=== PATIENT | male | born 1990 | race African-American/Black ===

== ENCOUNTER 2024-03-27 21:13 | Emergency (ER) | payer OTHER, SELFPAY ==
--- NOTE | 2024-03-27 21:13 | ECG_ITS ---
Test Reason : CHEST PAIN Blood Pressure : / mmHG Vent. Rate : 088 BPM Atrial Rate : 088 BPM P-R Int : 164 ms QRS Dur : 096 ms QT Int : 376 ms P-R-T Axes : 026 008 013 degrees QTc Int : 454 ms Normal sinus rhythm Normal ECG No previous ECGs available Referred By: Generic ED Physician Electronically Signed By:BERTHA VILLANUEVA MD
[2024-03-27 21:20] VITALS: BP 172/116; PULSE 90; RESP 16; TEMP 37; O2SAT 97; BMI 51.7
[2024-03-27 21:45] LABS: MANUAL DIFF FLAG NO
--- NOTE | 2024-03-27 21:45 | ED_ITS ---
HPI - Chest Pain General Chief Complaint: Chest Pain Stated Complaint: chest pain Time Seen by Provider: 03/27/24 21:37 Source: patient Mode of arrival: ambulatory Limitations: no limitations History of Present Illness HPI narrative: Patient no significant past medical history heavy built with strong family history of hypertension been having several months of left-sided discomfort blood pressure checked at home and several times was elevated today in triage blood pressure was 172/116 with pulse rate of 90 no diaphoresis no shortness a breath pain in the chest is nonspecific constant pain no radiation of pain fell some tingling in the left hand also no fever no chills no cough Related Data Previous Rx's ?Medication ?Instructions ?Recorded amlodipine 10 mg tablet 10 mg PO DAILY #90 tabs 03/27/24 Allergies Allergy/AdvReac Type Severity Reaction Status Date / Time amoxicillin Allergy Unknown Verified 03/27/24 21:21 Penicillins [PCN] Allergy Unknown Verified 03/27/24 21:21 Review of Systems 2 Review of Systems: Yes all other systems are reviewed and are negative [facility] Social History Social History Smoked in Last 30 Days: No Use of substances other than those prescribed or required for medical reasons: Yes Substance Use Type: Marijuana Substance Use Frequency: Occasionally Advance Directives: No Advance Directives Information Provided: No Do you have a plan to hurt others: No Plan Physical Exam 2 Vital Signs: Vital Signs: Last Vital Signs Temp 97.8 F 03/27/24 23:13 Pulse 76 03/27/24 23:13 Resp 16 03/27/24 23:13 BP 143/84 H 03/27/24 23:13 Pulse Ox 99 03/27/24 23:13 O2 Del Method Room Air 03/27/24 23:13 BMI result Body Mass Index 51.7 Appearance: Alert. Oriented X3. No acute distress. Eyes: No pallor or icterus ENT: Pharynx normal. Oral Mucosa moist Neck: Normal inspection. Neck supple. CVS: Normal heart rate and rhythm. Pulses normal. Respiratory: No respiratory distress. Equal air entry bilateral, no wheezing/rales/rhonchi Abdomen: Soft and nontender. Bowel sounds are present, no mass palpable, no CVA tenderness Skin: Skin warm and dry. Normal skin color. Normal skin turgor. Extremities: No lower extremity edema. No calf tenderness Neuro: Oriented X 3. No motor deficit. No sensory deficit.No cerebellar signs , cranial nerves II-XII intact Medications Administered Discontinued Medications Generic Name Dose Route Start Last Admin Trade Name Jessie PRN Reason Stop Dose Admin Amlodipine Besylate 10 mg 03/27/24 21:55 03/27/24 22:27 Amlodipine Besylate 10 Mg Tablet PO 03/27/24 21:56 10 mg ONCE ONE Administration Protocol Medical Decision Making Medical Decision Making [facility] Narrative: Patient with hypertension for several months with high-risk to have hypertension with strong family history will start patient on amlodipine advised to decrease salt intake patient's blood workup is negative for ACS Differential Diagnosis Differential Diagnoses: The differential diagnosis associated with the presentation includes Lab Data [facility] Lab Attestation statement: I reviewed the patient's lab results. 03/27/24 21:37 03/27/24 21:37 Labs: Lab Results 03/27/24 Range/Units 21:37 WBC 8.3 (4.8-10.8) X10*3/uL RBC 4.83 (4.60-5.80) X10*6/uL Hgb 14.9 (14.0-18.0) g/dl Hct 43.6 (42.0-52.0) % MCV 90.3 (80.0-98.0) fL MCH 30.8 (27.0-33.0) pg MCHC 34.2 (31.0-36.0) g/dl RDW 12.2 (11.0-16.0) % Plt Count 320 (160-400) X10*3/uL MPV 10.0 (9.4-12.4) fL Immature Gran % (Auto) 0.2 (0.0-0.4) % Neut % (Auto) 42.0 L (45-73) % Lymph % (Auto) 47.3 H (20-40) % [place] % (Auto) 9.4 (2-11) % Eos % (Auto) 0.6 (0-4) % Baso % (Auto) 0.5 (0-2) % Lymph # (Auto) 3.9 (1.2-4.9) X10*3/uL [place] # (Auto) 0.8 (0.1-1.2) X10*3/uL Eos # (Auto) 0.1 (0.0-0.4) X10*3/uL Baso # (Auto) 0.0 (0.0-0.2) X10*3/uL Abs Immat Gran (auto) 0.02 (0.00-0.03) X10*3/uL Absolute Neuts (auto) 3.5 (2.0-8.3) x10*3/uL Absolute Nucleated RBC 0.000 (0.0-0.012) X10*3/uL Nucleated RBC % (auto) 0.0 (0.0-0.2) /100WBC Sodium 143 (135-145) mmol/L Potassium 3.3 (3.3-5.1) mmol/L Chloride 103 (96-108) mmol/L Carbon Dioxide 29 (22-29) mmol/L Anion Gap 14 (12-20) BUN 9 (9-16) mg/dL Creatinine 0.85 (0.5-1.4) mg/dL Estim Creat Clear Calc 210.0 Estimated GFR > 60 Random Glucose 96 (60-115) mg/dL Calcium 10.2 (8.4-10.2) mg/dL Total Bilirubin 0.8 (0.0-1.0) mg/dL Direct Bilirubin 0.3 (0.0-0.5) mg/dL AST 23 (5-37) U/L ALT 25 (0-40) U/L Alkaline Phosphatase 93 (39-117) U/L Troponin I High Sens < 2.7 (<3.5-35.0) ng/L Total Protein 9.0 H (6.5-8.0) g/dL Albumin 4.8 (3.5-5.0) g/dL Lipase 13 (8-78) U/L Independent Interpretation I performed an independent interpretation of an: EKG Interpretation: Normal sinus rhythm heart rate 88 beats per minute no acute ST-T changes no acute ischemia Discharge Plan Discharge Clinical Impression: Essential hypertension Patient Disposition: Home, Self-Care Instructions: Hypertension (ED) Additional Instructions: Decrease salt intake Start taking blood pressure medication daily Check blood pressure daily should be less than 130/80 Follow with your PCP Prescriptions: New amlodipine 10 mg tablet 10 mg PO DAILY Qty: 90 1RF Interventions: ED Discharge Assessment Last Done: 03/27/24 23:13 Discharge Date/Time: 03/27/24 23:14 Print Language: Welsh
[2024-03-27 21:47] LABS: Basophils Percent Auto 0.5 % (0-2); Eosinophils Absolute Auto 0.1 X10*3/uL (0.0-0.4); Eosinophils Percent Auto 0.6 % (0-4); Hematocrit 43.6 % (42.0-52.0); Hemoglobin 14.9 g/dl (14.0-18.0); Imm Gran Abs Auto 0.02 X10*3/uL (0.00-0.03); Imm Gran Pct Auto 0.2 % (0.0-0.4); Lymphocytes Absolute Auto 3.9 X10*3/uL (1.2-4.9); Lymphocytes Percent Auto 47.3 % (20-40); Mean Corpuscular HGB Conc 34.2 g/dl (31.0-36.0); Mean Corpuscular Hemoglobin 30.8 pg (27.0-33.0); Mean Corpuscular Volume 90.3 fL (80.0-98.0); Monocytes Absolute Auto 0.8 X10*3/uL (0.1-1.2); Monocytes Percent Auto 9.4 % (2-11); Neutrophils Absolute Auto 3.5 x10*3/uL (2.0-8.3); Platelet Count 320 X10*3/uL (160-400); Red Blood Count 4.83 X10*6/uL (4.60-5.80); Red Cell Distribution Width 12.2 % (11.0-16.0); White Blood Count 8.3 X10*3/uL (4.8-10.8)
[2024-03-27 22:01] LABS: Alanine Aminotransferase 25 U/L (0-40); Albumin Level 4.8 g/dL (3.5-5.0); Alkaline Phosphatase 93 U/L (39-117); Anion Gap 14 (12-20); Aspartate Amino Transferase 23 U/L (5-37); Bilirubin Direct 0.3 mg/dL (0.0-0.5); Bilirubin Total 0.8 mg/dL (0.0-1.0); Blood Urea Nitrogen 9 mg/dL (9-16); Calcium 10.2 mg/dL (8.4-10.2); Carbon Dioxide 29 mmol/L (22-29); Chloride 103 mmol/L (96-108); Estimated Glomerular Filt Rate > 60; Glucose Random 96 mg/dL (60-115); Lipase 13 U/L (8-78); Potassium 3.3 mmol/L (3.3-5.1); Sodium 143 mmol/L (135-145)
[2024-03-27 22:13] LABS: Troponin-I High Sensitivity < 2.7 ng/L (<3.5-35.0)
[2024-03-27 22:27] VITALS: BP 151/91
[2024-03-27] MEDS: amLODIPine Besylate 10 MG TABLET PO (22:27)
--- NOTE | 2024-03-27 22:30 | PC.NURSE ---
pt from home, a&ox4, respirations even and unlabored, reporting onset of left sided chest pain x3 months, reports today left handed numbness, pt denies SOB and any sick contacts. pt medicated per mar for high blood pressure, tolerated well with water. pt normal sinus on tele 80-83bpm.
[2024-03-27 23:08] VITALS: BP 143/84; PULSE 76; RESP 16; TEMP 36.6; O2SAT 99
[2024-03-27 23:13] VITALS: BP 143/84; PULSE 76; RESP 16; TEMP 36.6; O2SAT 99
== END 2024-03-27 23:14 | disposition home or self-care (01) ==
PROVIDERS: Emergency Provider Internal Medicine
DX: I10 Essential (primary) hypertension (principal)
CPT/HCPCS: 36415; 80053; 82248; 83690; 84484; 85025; 93005; 99283; 99285

== ENCOUNTER → 2024-03-27 21:13 | Outpatient (BNV) | payer OTHER, SELFPAY | PROVIDERS: Emergency Provider Internal Medicine; Visit Provider Internal Medicine Cardiovascular Disease | DX: R07.9 Chest pain, unspecified (principal) | CPT/HCPCS: 93010 ==

== ENCOUNTER 2024-05-06 09:58 | Outpatient (AMB) | payer OTHER, SELFPAY ==
[2024-05-06 10:12] VITALS: BP 150/82; PULSE 67; O2SAT 97; BMI 47.4
--- NOTE | 2024-05-06 10:12 | A.OFFPC_ITS ---
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 ?? Prior PCP:? Peds as a teen - doesnt recall Last office visit/CPE:? Acute issue(s):? Chest tightness ?? PMHx:?Asthma, HTN SurgHx:? None FHx:? Mom: HTN, COPD, DM. Dad: Unknown. GM: Breast CA. GF: Lung CA SocHx:? Quit Cigs 7 yrs ago. EtOH: Rarely. 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 Vision needs: Yes (glasses) Questionnaire PHQ-9 Over the last 2 weeks, how often have you been bothered by any of the following problems? 1. Little interest or pleasure in doing things: not at all 2. Feeling down, depressed, or hopeless: not at all 3. Trouble falling or staying asleep, or sleeping too much: not at all 4. Feeling tired or having little energy: not at all 5. Poor appetite or overeating: not at all 6. Feeling bad about yourself - or that you are a failure or have let yourself or your family down: not at all 7. Trouble concentrating on things, such as reading the newspaper or watching television: not at all 8. Moving or speaking so slowly that other people could have noticed. Or the opposite - being so fidgety or restless that you have been moving around a lot more than usual: not at all 9. Thoughts that you would be better off or of hurting yourself in some way: not at all Total score: 0 Depression Screening Interpretation: Negative Depression Screening Done: Yes 20958 - PHQ-9 Billing: Yes Source: Developed by Drs. Raúl Barboza, Sandy Obando, Marquis Eldridge and colleagues, with an educational monalisa from [employer]. Thrive Questionnaire Date Thrive assessed: 05/06/24 I am a: Patient What is your living situation today?: I have a steady place to live Within the past 12 months, did the food you bought not last and you didn't have the money to get more?: Never true Within the past 12 months, did you worry whether your food would run out before you got money to buy more?: Never true Do you have trouble paying for medicines?: No Do you have trouble getting transportation to medical appointments?: No Do you have trouble paying your heating and electricity bill?: No Do you have trouble taking care of your child, family member or friend?: No Do you have trouble with day-to-day activities such as bathing, preparing meals, shopping, managing finances, etc.?: No Are you currently unemployed and looking for a job?: No Are you interested in more education?: No THRIVE Score: 0 AUDIT C Alcohol Use Questionnaire (AUDIT-C) 1. How often do you have a drink containing alcohol?: Monthly or less 2. How many drinks containing alcohol do you have on a typical day when you are drinking?: 1 or 2 3. How often do you have six or more drinks on one occasion?: Never Total Score: 1 ZOILA-7 AMB Questionnaire ZOILA-7 Date ZOILA - 7 assessed: 05/06/24 Feeling nervous, anxious, or on edge: 0 = Not at all Not being able to stop or control worryin = Not at all Worrying too much about different things: 0 = Not at all Trouble relaxin = Not at all Being so restless that it is hard to sit still: 0 = Not at all Becoming easily annoyed or irritable: 0 = Not at all Feeling afraid as if something awful might happen: 0 = Not at all Total ZOILA-7 score (0-4 normal; 5-9 mild; 10-14 moderate; 15-21 severe): 0 Source: Developed by Drs. Raúl Barboza, Sandy Obando, Marquis Eldridge and colleagues, with an educational monalisa from [employer]. ZOILA-7 Assessment Billing ZOILA-7 Assessment Tool: ZOILA-7 Assessment 50958 ACT Questionnaire In the past 4 weeks, how much of the time did your asthma keep you from getting as much done at work, school or at home?: None of the time During the past 4 weeks, how often have you had shortness of breath?: Once a day During the past 4 weeks, how often did your asthma symptoms wake you up at night or earlier than usual in the morning?: Not at all During the past 4 weeks, how often have you had to use your rescue inhaler or nebulizer medication?: Not at all How would you rate your asthma control during the past 4 weeks?: Well controlled Score: 21 Review of Systems Const Denies chills, Denies fatigue, Denies fever(s), Denies headache(s) and Denies weakness ENT Denies dizziness and Denies headache(s) Card Reports chest pain, Denies lightheadedness, Denies dyspnea and Denies other (Palpitations) Resp Denies cough, Denies dyspnea, Denies wheezing and Denies other ( shortness of breath) Musc Denies numbness and Denies tingling Neuro Denies dizziness, Denies headache(s), Denies numbness, Denies tingling, Denies paresthesias and Denies weakness Psych Denies anxiety and Denies depression Endo Denies fatigue Aller/Immun Denies wheezing Physical exam (Primary Care) Vital Signs: Last Vital Signs Pulse 67 05/06/24 10:12 BP 150/82 H 05/06/24 10:12 Pulse Ox 97 05/06/24 10:12 Oxygen Delivery Method Room Air 05/06/24 10:12 BMI result Body Mass Index 47.4 Tobacco/Smoking Status: Tobacco use Status Tobacco use date assessed 05/06/24 05/06/24 10:15 Patient Tobacco Use Status Former Tobacco user 05/06/24 10:29 e-Cigarette/Vaping Use Never Used 05/06/24 10:29 PHQ-9: PHQ-9 Score PHQ-9: Total score 0 05/06/24 10:48 Depression Screening Interpretation: Negative Thrive Assessment: Date of Thrive Assessment Date Thrive assessed 05/06/24 05/06/24 10:29 Const General: no acute distress and well developed Nutritional Appearance: obese morbidly obese Orientation/consciousness: patient oriented x3 HENMT Head: Yes normocephalic and Yes atraumatic Eyes General: appearance normal, both eyes and all related structures Pupils: Equal, round and reactive pupils present EOM: EOMs intact bilaterally Resp Effort & Inspection: normal respiratory effort Auscultation: clear to auscultation bilaterally Cardio Rate: regular rate Rhythm: regular rhythm Heart sounds: S1 normal heart sound present, S2 normal heart sound present, no gallops, no murmurs and no rubs Neuro General: patient oriented x3 and gait normal Cranial nerves: Yes Equal, round and reactive pupils present Psych Affect: normal affect Assessment and Plan Assessment & Plan (1) Hypertension: Code(s): I10 - Essential (primary) hypertension Plan: Prior?stage?II?hypertension?and?remains?hypertensive?despite?amlodipine?10?mg?da abraham Will?add?hydrochlorothiazide (2) Chest pain: Code(s): R07.9 - Chest pain, unspecified Plan: Patient?has?had?recurrent?episodes?of?chest?pain?located?prim arily?at?the?costal?margins?and?epigastric?region. Is?having?pain?in?office?today. History?of?asthma?though?he?does?not?acknowledge?that?this?is?similar?to?asthma? symptoms. Had?a?visit?to?the[place] [place]?for?this?in?late?March?and?says?symptoms?were?similar?but?much?wor se?at?that?time.??An?EKG?was?negative EKG?today: ?Normal?sinus?rhythm,?normal?axis,?normal?intervals,?no?hypertrophy,?n o?ST-T-wave?changes Also?checking?chest?x-ray?and?labs Will?also?trial?omeprazole?for?possible?gastritis/GERD We?also?discussed?that?if?no?organic?cause?is?found,?anxiety?is?also?on?the?diff erential. (3) Asthma: Code(s): J45.909 - Unspecified asthma, uncomplicated Plan: History?of?asth ma.??Patient?does?have?some?chest?tightness?though?this?does?not?appear?to?be?re lated Will?give?him?an?albuterol?inhaler?that?he?can?use?for?chest?tightness?or?wheezi ng?that?he?associates?with?asthma. (4) Laboratory exam ordered as part of routine general medical examination: Code(s): Z00.00 - Encounter for general adult medical examination without abnormal findings Plan: Check?labs (5) Morbid obesity with BMI of 45.0-49.9, adult: Code(s): E66.01 - Morbid (severe) obesity due to excess calories; Z68.42 - Body mass index [BMI] 45.0-49.9, adult Plan: Will?follow?and?encouraged?weight?loss Orders: Orders Microalbumin, Random (w Creat) Today I10 - Essential (primary) hypertension TSH reflex Free T4 Today Z00.00 - Encounter for general adult medical examination without abnormal findings HIV Ab/Ag Today Z11.3 - Encounter for screening for infections with a predominantly sexual mode of transmission Syphilis Screen Today Z11.3 - Encounter for screening for infections with a predominantly sexual mode of transmission AMB EKG-In Office Today R07.9 - Chest pain, unspecified Comprehensive Merna. Panel Fast Today Z00.00 - Encounter for general adult medical examination without abnormal findings Complete Blood Count Auto Diff Today Z00.00 - Encounter for general adult medical examination without abnormal findings Lipid Panel Today Z00.00 - Encounter for general adult medical examination without abnormal findings UA and rflx microscopic Today Z00.00 - Encounter for general adult medical examination without abnormal findings CT NG by PCR Today Z11.3 - Encounter for screening for infections with a predominantly sexual mode of transmission Hepatitis B,C Profile Today Z11.3 - Encounter for screening for infections with a predominantly sexual mode of transmission Troponin-I High Sensitivity Today R07.9 - Chest pain, unspecified XR chest 2V Today R07.9 - Chest pain, unspecified Medications: New hydrochlorothiazide 25 mg PO DAILY 30 days 30 tabs 2RF omeprazole 40 mg PO DAILY 30 days 30 caps 2RF Coding Level of Care Code New Pt Level 3 (59624) Diagnoses Hypertension I10 Chest pain R07.9 Asthma J45.909 Laboratory exam ordered as part of routine general medical examination Z00.00 Morbid obesity with BMI of 45.0-49.9, adult E66.01; Z68.42 Additional Codes ZOILA-7 Assessment Billing - ZOILA-7 Assessment Tool: ZOILA-7 Assessment [id number] ([id number])
== END 2024-05-06 12:04 | disposition home or self-care (01) ==
PROVIDERS: PCP Family Medicine; Visit Provider Family Medicine
DX: I10 Essential (primary) hypertension (principal); R07.9 Chest pain, unspecified; E66.01 Morbid (severe) obesity due to excess calories; Z68.42 Body mass index [BMI] 45.0-49.9, adult; J45.909 Unspecified asthma, uncomplicated
CPT/HCPCS: 99203

== ENCOUNTER 2024-05-06 11:51 | Outpatient (REF) | payer OTHER, SELFPAY ==
[2024-05-06 14:04] LABS: MANUAL DIFF FLAG NO
[2024-05-06 14:09] LABS: Appearance Urine Cloudy; Color Urine Yellow; Glucose Urine UA Negative (Negative); Leukocyte Esterase Urine Negative (Negative); Nitrite Urine Negative (Negative); PH 7.5 (5.0-9.0); Urine Blood Negative (Negative); Urine Ketones Negative (Negative); Urine Protein Trace mg/dL (Neg-Trace)
[2024-05-06 14:23] LABS: Basophils Percent Auto 0.7 % (0-2); Eosinophils Percent Auto 0.5 % (0-4); Hematocrit 44.5 % (42.0-52.0); Hemoglobin 14.9 g/dl (14.0-18.0); Imm Gran Abs Auto 0.01 X10*3/uL (0.00-0.03); Imm Gran Pct Auto 0.2 % (0.0-0.4); Lymphocytes Absolute Auto 2.8 X10*3/uL (1.2-4.9); Lymphocytes Percent Auto 47.8 % (20-40); Mean Corpuscular HGB Conc 33.5 g/dl (31.0-36.0); Mean Corpuscular Hemoglobin 31.1 pg (27.0-33.0); Mean Corpuscular Volume 92.9 fL (80.0-98.0); Mean Platelet Volume 10.8 fL (9.4-12.4); Monocytes Absolute Auto 0.6 X10*3/uL (0.1-1.2); Monocytes Percent Auto 9.4 % (2-11); Neutrophils Absolute Auto 2.5 x10*3/uL (2.0-8.3); Neutrophils Percent Auto 41.4 % (45-73); Platelet Count 335 X10*3/uL (160-400); Red Blood Count 4.79 X10*6/uL (4.60-5.80); Red Cell Distribution Width 12.4 % (11.0-16.0); White Blood Count 5.9 X10*3/uL (4.8-10.8)
[2024-05-06 14:37] LABS: Troponin-I High Sensitivity < 2.7 ng/L (<3.5-35.0)
[2024-05-06 14:38] LABS: Alanine Aminotransferase 23 U/L (0-40); Albumin Level 4.6 g/dL (3.5-5.0); Alkaline Phosphatase 85 U/L (39-117); Anion Gap 13 (12-20); Aspartate Amino Transferase 18 U/L (5-37); Bilirubin Total 0.8 mg/dL (0.0-1.0); Blood Urea Nitrogen 8 mg/dL (9-16); Calcium 9.6 mg/dL (8.4-10.2); Carbon Dioxide 26 mmol/L (22-29); Chloride 105 mmol/L (96-108); Cholesterol 199 mg/dL (<200); Estimated Glomerular Filt Rate > 60; Glucose Fasting 87 mg/dL (60-99); HDL Cholesterol 40 mg/dL (>40); LDL Cholesterol Calculated 138 mg/dL (<100); Potassium 3.3 mmol/L (3.3-5.1); Sodium 141 mmol/L (135-145); Total Protein 8.3 g/dL (6.5-8.0); Triglycerides 109 mg/dL (<150)
[2024-05-06 14:39] LABS: Syphilis Screen Nonreactive (Nonreactive)
[2024-05-06 14:42] LABS: HBS Num1 8.06 mIU/mL (0-7.99); HBc Num1 0.16 S/CO (0.00-0.79); HBsAGNum1 0.26 S/CO (0.00-0.99); HIV AB/AG Nonreactive (Nonreactive); HIV Num 1 0.06 S/CO (0.00-0.99); Hepatitis B Core Antibody Nonreactive (Nonreactive); Hepatitis B Surface Antigen Negative (Negative); ~HepC Num1 0.12 S/CO (0.00-0.79); ~Hepatitis C Antibody Nonreactive (Nonreactive)
[2024-05-06 15:12] LABS: Creatinine Urine 246.04 mg/dL; Microalbum/Creatinine Ratio Ur 13.8 ug/mg cr (<30)
[2024-05-06 15:45] LABS: HBS Num2 9.16 mIU/mL (0-7.99)
[2024-05-06 15:46] LABS: ~Hepatitis B Surface Antibody GRAYZONE (Nonreactive)
== END 2024-05-06 11:52 | disposition home or self-care (01) ==
LOC: HO.WFDLDS 11:51
PROVIDERS: Visit Provider Family Medicine
DX: Z00.00 Encounter for general adult medical examination without abnormal findings (principal); Z11.3 Encounter for screening for infections with a predominantly sexual mode of transmission; R07.9 Chest pain, unspecified; I10 Essential (primary) hypertension
CPT/HCPCS: 36415; 80053; 80061; 81003; 82043; 82570; 84443; 84484; 85025; 86704; 86706; 86780; 86803; 87340; 87389

== ENCOUNTER 2024-08-12 16:15 | Outpatient (AMB) | payer OTHER, SELFPAY ==
--- NOTE | 2024-08-12 16:20 | MHC.PC.OV ---
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 Patient would like to discuss weight loss medications/options. 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 His primary care physician is Dr. Moody. He was seen by Dr. Moody in May, and he was in the emergency room in March for evaluation of chest pain. He did not have his chest x-ray completed which he was reminded to do. ACS workup was negative. Patient was started on omeprazole 40 mg daily. He had 1 or 2 episodes of chest pain after starting the medication and none since those. He enjoys spicy and acidic foods and coffee. He does remember having episodes of keysha acid reflux before taking omeprazole. No vomiting or dysphagia. Patient denies shortness of breath, palpitations or exertional symptoms. He is a nonsmoker. We reviewed his lab results. His total protein level is mildly elevated. It decreased from 9-8.3 since 03/2024. He will repeat it when he is well hydrated and nonfasting. Renal function and hepatic function are normal. No anemia and white blood cell count is normal as well. He is prescribed amlodipine and hydrochlorothiazide for hypertension. Patient says there is a strong family history of high blood pressure. His blood pressure today is 156/70. He came straight from work, and he says he took his medications late today. He also had caffeinated coffee before the appointment. He does want to lose weight. He knows it will help with his blood pressure. He is trying to follow a healthy diet and he is active. His TSH was normal. He is interested in hearing about weight loss medication. Immunization recommendations reviewed. He declined Tdap vaccine. ROS: Constitutional: No unexplained weight loss, fever, chills, fatigue or night sweats. Eyes: No vision changes, blurry vision, double vision, eye pain, eye redness, eye discharge. ENT: No hearing loss, sneezing, congestion, runny nose or sore throat. Respiratory: No shortness of breath, cough or sputum production. Cardiovascular: No chest pain, chest pressure or chest discomfort. No palpitations or pedal edema. Gastrointestinal: No anorexia, nausea, vomiting or diarrhea. No abdominal pain or blood in stool. Genitourinary: No dysuria, hematuria, urinary frequency. No penile discharge, swelling, testicular masses or pain. Neurologic: No headache, dizziness, syncope, unilateral weakness, ataxia, numbness or tingling in the extremities. Musculoskeletal: No muscle pain, back pain, joint pain or swelling. Hematologic/Lymphatics: No bleeding or bruising. No painful lymph nodes. Skin: No rash Endocrine: No cold or heat intolerance. No polyuria or polydipsia. Psychiatric: No depression or anxiety. No SI/HI. Physical exam: Constitutional: Alert, in no distress. Head: Normocephalic. Eyes: Pupils are equal, round and reactive to light. Extraocular muscles intact. Ear, Nose and Throat: Canals clear. TMs normal. Normal nasal mucosa. No nasal discharge. No oral lesions. Neck: Supple, Full range of motion. No lymphadenopathy. No palpable thyroid masses. Respiratory: Clear to auscultation. Cardiovascular: S1 S2 regular. No murmurs. Gastrointestinal: Abdomen soft, non-tender, non-distended. Normal bowel sounds. No palpable masses. Genitourinary: Deferred. Neurologic: No focal neurological deficits. Symmetric patellar reflexes. Moves all extremities spontaneously. Sensation intact bilaterally. Skin: No rashes or lesions. Musculoskeletal: No gross deformities. Normal range of motion. Extremities: Warm and well perfused. No clubbing, cyanosis or edema. Psychiatric: Normal mood and affect [facility] Medical History (Updated 08/13/24 @ 09:47 by FERNANDO Moscoso) Routine physical examination Migraines Asthma Surgical History (Updated 05/06/24 @ 10:19 by Dana Urias CMA) No pertinent past surgical history Family History (Updated 05/06/24 @ 10:22 by Dana Urias [facility]) Mother COPD (chronic obstructive pulmonary disease) High blood pressure Diabetes Maternal Grandmother Breast cancer Maternal Grandfather Lung cancer Social History (Updated 08/12/24 @ 16:28 by Hailee Holcomb [facility]) Household Members: Spouse and Children Housing: Apartment Are you a primary certified caregiver to a significant other at home: No Do you presently have visiting nurse or other home services: No 75 years or older and lives alone: No Alcohol intake: never Patient Tobacco Use Status: Former Tobacco user e-Cigarette/Vaping Use: Never Used Substance Use Type: Marijuana service: No Current occupational status: employed 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 Cognitive needs: No Hearing needs: No Vision needs: Yes (glasses) Questionnaire PHQ-9 Over the last 2 weeks, how often have you been bothered by any of the following problems? 1. Little interest or pleasure in doing things: not at all 2. Feeling down, depressed, or hopeless: not at all 3. Trouble falling or staying asleep, or sleeping too much: not at all 4. Feeling tired or having little energy: not at all 5. Poor appetite or overeating: nearly every day 6. Feeling bad about yourself - or that you are a failure or have let yourself or your family down: not at all 7. Trouble concentrating on things, such as reading the newspaper or watching television: not at all 8. Moving or speaking so slowly that other people could have noticed. Or the opposite - being so fidgety or restless that you have been moving around a lot more than usual: not at all 9. Thoughts that you would be better off or of hurting yourself in some way: not at all Total score: 3 Depression Screening Interpretation: Negative Depression Screening Done: Yes 35219 - PHQ-9 Billing: Yes Source: Developed by Drs. Raúl Barboza, Sandy Obando, Marquis Edlridge and colleagues, with an educational monalisa from [employer]. Thrive Questionnaire Date Thrive assessed: 05/06/24 I am a: Patient What is your living situation today?: I have a steady place to live Within the past 12 months, did the food you bought not last and you didn't have the money to get more?: Never true Within the past 12 months, did you worry whether your food would run out before you got money to buy more?: Never true Do you have trouble paying for medicines?: No Do you have trouble getting transportation to medical appointments?: No Do you have trouble paying your heating and electricity bill?: No Do you have trouble taking care of your child, family member or friend?: No Do you have trouble with day-to-day activities such as bathing, preparing meals, shopping, managing finances, etc.?: No Are you currently unemployed and looking for a job?: No Are you interested in more education?: No Please select the resources that you would like help with: None Currently or been in a relationship where the following occur: No concerns reported THRIVE Score: 0 AUDIT C Alcohol Use Questionnaire (AUDIT-C) 1. How often do you have a drink containing alcohol?: Never 3. How often do you have six or more drinks on one occasion?: Never Total Score: 0 Score Reviewed/Action Taken: No ZOILA-7 AMB Questionnaire ZOILA-7 Date ZOILA - 7 assessed: 08/12/24 Feeling nervous, anxious, or on edge: 0 = Not at all Not being able to stop or control worryin = Not at all Worrying too much about different things: 0 = Not at all Trouble relaxin = Not at all Being so restless that it is hard to sit still: 0 = Not at all Becoming easily annoyed or irritable: 0 = Not at all Feeling afraid as if something awful might happen: 0 = Not at all Total ZOILA-7 score (0-4 normal; 5-9 mild; 10-14 moderate; 15-21 severe): 0 Source: Developed by Drs. Raúl Barboza, Sandy Obando, Marquis Eldridge and colleagues, with an educational monalisa from [employer]. ZOILA-7 Assessment Billing ZOILA-7 Assessment Tool: ZOILA-7 Assessment 30955 Physical exam (Primary Care) Vital Signs: Last Vital Signs Pulse 101 H 08/12/24 16:21 BP 156/70 H 08/12/24 16:21 Pulse Ox 98 08/12/24 16:21 Oxygen Delivery Method Room Air 08/12/24 16:21 BMI result Body Mass Index 48.0 Tobacco/Smoking Status: Tobacco use Status Tobacco use date assessed 05/06/24 08/12/24 16:28 Patient Tobacco Use Status Former Tobacco user 08/12/24 16:28 e-Cigarette/Vaping Use Never Used 08/12/24 16:28 PHQ-9: PHQ-9 Score PHQ-9: Total score 3 08/12/24 16:32 Depression Screening Interpretation: Negative Thrive Assessment: Date of Thrive Assessment Date Thrive assessed 05/06/24 08/12/24 16:28 Currently or been in a relationship where the following occur: No concerns reported Assessment and Plan Assessment & Plan (1) Routine physical examination: Code(s): Z00.00 - Encounter for general adult medical examination without abnormal findings (2) Chest pain: Code(s): R07.9 - Chest pain, unspecified Qualifiers: Chest pain type: unspecified Qualified Code(s): R07.9 - Chest pain, unspecified Plan Patient is seen today for a routine physical. As part of this visit we reviewed the following issues, which are considered and essential part of preventative health in this age group: - Testicular cancer screening, which includes self exam teaching - Cholesterol screening - Nutritional and exercise counseling - Counseling of injury prevention including fire prevention, smoke alarms and seat belt usage - Screening for depression - Prevention of and/or testing for infectious diseases - Education about skin cancer - Recommendations about immunizations - Recommendation of an eye exam - Screening for substance abuse Patient seen in the emergency department and had a follow up in the office for chest pain. Improved on PPI and has since resolved. Refer to Gastroenterology for further workup and consideration of EGD. Remain on omeprazole at this time. Avoid spicy and acidic foods. If he has recurrent episodes of chest pain he was told to go to the emergency room. He will repeat total protein-see HPI. His blood pressure is elevated today. Encourage compliance with medications, decreasing caffeine and sodium in his diet. I gave him a prescription for an extra large blood pressure cuff so he can monitor at home, and he will follow up in 1 month to review the log and adjust medications at that time if indicated. We discussed Wegovy and Zepbound for obesity. He is unsure he wants to proceed at this time. He will contact me or discuss this further at his follow up if he wants me to submit the prescription. Follow up in 1 month for HTN recheck. Orders: Orders Total Protein 08/12/24 R77.8 - Other specified abnormalities of plasma proteins Referrals Gastroenterology Referral K21.9 - Gastro-esophageal reflux disease without esophagitis, R07.9 - Chest pain, unspecified Medications: New miscellaneous medical supply (Blood Pressure Cuff) As directed 1 ea 0RF Coding Level of Care Code Est Pt Prev Care 18-39y(23157) Diagnoses Routine physical examination Z00.00 Chest pain, unspecified type R07.9 Chest pain type: unspecified Additional Codes ZOILA-7 Assessment Billing - ZOILA-7 Assessment Tool: ZOILA-7 Assessment 33503 ([id number])
[2024-08-12 16:21] VITALS: BP 156/70; PULSE 101; O2SAT 98; BMI 48.0
== END 2024-08-12 17:11 | disposition home or self-care (01) ==
PROVIDERS: Visit Provider Physician Assistant Medical
DX: Z00.00 Encounter for general adult medical examination without abnormal findings (principal); R07.9 Chest pain, unspecified
CPT/HCPCS: 99395

== ENCOUNTER 2024-10-08 11:38 | Outpatient (AMB) | payer OTHER, SELFPAY ==
[2024-10-08 11:41] VITALS: BP 137/82; PULSE 83; BMI 47.8
--- NOTE | 2024-10-08 11:41 | MHC.OFFVIS ---
Vital Signs 10/08/24 11:41 Height 6 ft 1 in Weight 361 lb 15.984 oz BMI 47.8 BP 137/82 Blood Pressure Location Lt brachial Position Sitting Pulse 83 Intake Visit Reasons: Gastroesophageal reflux disease (GERD) Intake Note: CC: Patient c/o LUQ abdominal pain on and off for about 2 years. Pt states that when he was placed on BP medication the pain stopped but it began again recently. Patient also c/o GERD and chest pain. Allergies amoxicillin Allergy (Verified 08/12/24 16:26) Unknown Penicillins [PCN] Allergy (Verified 08/12/24 16:26) Unknown HPI HPI Gastroesophageal reflux disease (GERD): Details: HPI 34 yr old m w/ HTN here for assessment he has LUQ for 1 year, he has also noted chest pain, on and off for > 1yr he has heaviness and pressure, in the chest can co exist with LUQ pain at times, only had one time with tingling in left hand denies exertional pain takes omeprazole 40 mg since March and doesnt think it i helping,--given by ED he is unsure abt palpitations he gets sob easy, about a flight of stairs no coughing and wheezing no vomiting, he snores a lot, stops breathing at times chronic fatigue denies morning headaches few days of hip pain -right back pain -lower caryn in mornings, it gets better as day goes on LABS: 05/06/24- nml lft, CBC, mild raised protein ROS: Constitutional : No Weight loss, No Fever, No Chills ENT/Mouth : No sore throat, No Rhinorrhea Eyes: No Swelling, No Redness Cardiovascular : No Chest Pain, No SOB, No Edema Respiratory : No Cough, No Sputum, No Wheezing Gastrointestinal : see HPI Genitourinary : NO Dysuria, No Urinary Frequency, No Hematuria, No Urgency Musculoskeletal :no joint pain, No Myalgias, No Joint Swelling Skin : No Skin Lesions, No rash Neuro : No Weakness, No Numbness, No Dizziness, No Headache Psych : No Anxiety/Panic, No Depression Heme/Lymph: No Bruising, No Lymphadenopathy Endocrine : No Polyuria, No Polydipsia All other systems reviewed and are negative. Medical History Migraines Asthma Surgical History No pertinent past surgical history Family History Mother COPD (chronic obstructive pulmonary disease) High blood pressure Diabetes Maternal Grandmother Breast cancer Maternal Grandfather Lung cancer Social History Household Members: Spouse and Children Housing: Apartment Are you a primary career orientation teacher to a significant other at home: No Do you presently have visiting nurse or other home services: No 75 years or older and lives alone: No Alcohol intake: never Patient Tobacco Use Status: Former Tobacco user e-Cigarette/Vaping Use: Never Used Substance Use Type: Marijuana - every night 16 yrs, smokes service: No Current occupational status: employed 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 Cognitive needs: No Hearing needs: No Vision needs: Yes (glasses) EXAM: GENERAL: The patient is well developed and nontoxic. VITAL SIGNS:see workflow HEENT: Nonicteric sclerae, PERRLA, EOMI. Oropharynx clear. Moist mucous membranes. Conjunctivae appear well perfused. No thyroid mass. CHEST: Chest wall is nontender. HEART: Regular rate and rhythm without murmurs. LUNGS: Clear to auscultation bilaterally. ABDOMEN: Soft, positive bowel sounds, nontender, no organomegaly.no flank tenderness SKIN: No rash, no excessive bruising, petechiae, or purpura. NEUROLOGIC: Cranial nerves II-XII intact without motor/sensory deficit. Psych: normal affect No back tenderness A/P: 1/ CHest pressure and LUQ pressure, has no improvement with PPI, has HTN and high BMI, mild raised LDL --need to r/o cardiac etiology 2/ Snoring and apnea probable SHERRY PLAN: 1/ sleep study 2/ stress test 3/ echo 4/ h pylori test 5/ US abdo 6/ monitor BP at home, if consistently high modify therapy, consider adding statin PFSH Medical History (Updated 10/08/24 @ 12:09 by Jaime Tenorio MD) Routine physical examination Migraines Asthma Surgical History (Updated 05/06/24 @ 10:19 by Dana Urias CMA) No pertinent past surgical history Family History (Updated 05/06/24 @ 10:22 by Dana Urias CMA) Mother COPD (chronic obstructive pulmonary disease) High blood pressure Diabetes Maternal Grandmother Breast cancer Maternal Grandfather Lung cancer Social History (Updated 08/12/24 @ 16:28 by Hailee Holcomb CMA) Household Members: Spouse and Children Housing: Apartment Are you a primary career orientation teacher to a significant other at home: No Do you presently have visiting nurse or other home services: No 75 years or older and lives alone: No Alcohol intake: never Patient Tobacco Use Status: Former Tobacco user e-Cigarette/Vaping Use: Never Used Substance Use Type: Marijuana service: No Current occupational status: employed 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 Cognitive needs: No Hearing needs: No Vision needs: Yes (glasses) Assessment & Plan Assessment & Plan (1) Chest pain: Code(s): R07.9 - Chest pain, unspecified Category: Medical Qualifiers: Chest pain type: unspecified Qualified Code(s): R07.9 - Chest pain, unspecified Plan: see above (2) Snoring: Code(s): R06.83 - Snoring Category: Medical Plan: see above (3) LUQ abdominal pain: Code(s): R10.12 - Left upper quadrant pain Category: Medical Plan: see above Orders: Orders CA echo transthoracic complete Today R07.9 - Chest pain, unspecified US abdomen complete Today R10.12 - Left upper quadrant pain CA stress test Today R07.9 - Chest pain, unspecified Referrals Sleep Medicine Referral R06.83 - Snoring, R07.9 - Chest pain, unspecified Coding Level of Care Code New Pt Level 4 (47812) Diagnoses Chest pain, unspecified type R07.9 Chest pain type: unspecified Snoring R06.83 LUQ abdominal pain R10.12
== END 2024-10-08 12:09 | disposition home or self-care (01) ==
PROVIDERS: Visit Provider Internal Medicine Gastroenterology
DX: R07.9 Chest pain, unspecified (principal); R06.83 Snoring; R10.12 Left upper quadrant pain
CPT/HCPCS: 99204

== ENCOUNTER → 2024-10-08 11:38 | Outpatient (BNVA) | payer OTHER, SELFPAY | PROVIDERS: Visit Provider Internal Medicine Gastroenterology ==

== ENCOUNTER 2024-10-22 09:42 | Outpatient (REF) | payer OTHER, SELFPAY ==
--- NOTE | ~2024-10-22 | US_ITS ---
EXAMINATION: US ABDOMEN COMPLETE CLINICAL INFORMATION: Left upper quadrant pain and nausea. COMPARISON: None available. TECHNIQUE: Real-time imaging of the abdominal viscera. FINDINGS: PANCREAS: Head and body appear unremarkable. Tail not well visualized. ABDOMINAL AORTA: The proximal, mid, and distal segments appear unremarkable in caliber. INFERIOR VENA CAVA: Visualized portions appear unremarkable. LIVER: The liver appears unremarkable in size, contour, and echogenicity. No focal hepatic lesion appreciated. No intrahepatic biliary duct dilatation is seen. GALLBLADDER: The gallbladder is physiologically distended without evidence of stones, sludge, polyps, wall thickening, hyperemia, or pericholecystic fluid. COMMON BILE DUCT: Normal in caliber measuring 0.6 cm in diameter. RIGHT KIDNEY: No hydronephrosis. No renal calculi or focal parenchymal lesion identified. The kidney measures 12.6 cm in maximum dimension. LEFT KIDNEY: No hydronephrosis. No renal calculi or focal parenchymal lesion identified. The kidney measures 11.7 cm in maximum dimension. SPLEEN: The spleen measures 10.7 cm in maximum dimension. FREE FLUID: None. US/US abdomen complete IMPRESSION: Unremarkable abdominal ultrasound examination. Electronically signed by: Dima Yao MD 10/22/2024 02:59 PM [facility]
== END 2024-10-22 09:43 | disposition home or self-care (01) ==
LOC: HO.US 09:42
PROVIDERS: Visit Provider Internal Medicine Gastroenterology
DX: R10.12 Left upper quadrant pain (principal)
CPT/HCPCS: 76700

== ENCOUNTER 2024-10-22 15:38 | Outpatient (REF) | payer OTHER, SELFPAY ==
[2024-10-27 15:16] LABS: H Pylori Breath Test Negative (Negative)
== END 2024-10-22 15:39 | disposition home or self-care (01) ==
LOC: HO.LNP 15:38
PROVIDERS: Visit Provider Internal Medicine Gastroenterology
DX: A04.8 Other specified bacterial intestinal infections (principal)
CPT/HCPCS: 83013

== ENCOUNTER → 2024-11-02 08:01 | Outpatient (REF) | payer OTHER, SELFPAY ==
--- NOTE | 2024-11-02 08:03 | CA_ITS ---
Acquisition Time: 2024-11-02 08:45:29 Total Exercise Time: 00:07:48 Test Indications: CP, SOB Medications: Protocol: RONA Max HR: 176 BPM 94% of Pred: 187 BPM Max BP: 182/088 mmHG Max Work Load: 9.7 METS Exercise Stress Test with exercise 7 mins 48 secs of Rona Prototcol, achieving 94% MPHR, without any anginal symptoms, without any arrythmias, with normotensive response to exercise. Without EKG changes meeting criteria for ischemia. Test reviewed with Dr. Fonseca. Referred By: Jaime Tenorio Overread By: RONNY WOODARD
--- NOTE | 2024-11-02 08:03 | CA_ITS ---
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 The calculated ejection fraction is 58% by biplane method. - No obvious valvular pathology seen on this study. Findings Left Ventricle Normal left ventricular cavity size. There is moderately increased left ventricular wall thickness. The left ventricular systolic function is normal. The calculated ejection fraction is 58% by biplane method. There is no evidence of regional wall motion abnormalities. Diastolic function is normal for age. Right Ventricle Normal right ventricular cavity size and systolic function. Atria Both atria are normal in size. Aortic Valve There is a normal trileaflet aortic valve. There is no aortic valve stenosis. There is no aortic valve regurgitation. Mitral Valve The mitral valve appears normal. There is trace mitral valve regurgitation. There is no mitral valve stenosis. Pulmonic Valve The pulmonic valve is likely normal. Tricuspid Valve There is trace tricuspid valve regurgitation. Tricuspid regurgitation envelope is inadequate for calculation of right ventricular systolic pressure. Great Vessels The asc aorta and aortic arch are normal in size. Venous The inferior vena cava is normal in size and collapses greater than 50% with inspiration. Pericardium/Pleural There is no evidence of pericardial effusion. Prior Study Comparison No prior study available for comparison. Recommendations, Care & Conclusions No obvious valvular pathology seen on this study. Measurements 2D Linear Measurements IVSd: 1.33 0.6-0.9/0.6-1.0 cm LVIDd: 4.45 3.9-5.3/4.2-5.9 cm LVIDd Index: 1.61 2.4-3.2/2.2-3.1 cm/m2 LVIDs: 2.85 2.0-3.6 cm LVPWd: 1.37 0.7-1.1 cm LA Diam: 5.40 2.7-3.8/3.0-4.0 cm LAIDs Index: 1.96 1.5-2.3 cm/m2 LV Mass: 288.50 67-162/88-224 g LV Mass Index: 104.53 43-95/49-115 g/m2 LVOT Diam: 2.40 3.0+(-)1.3 cm 2D Systolic Function EF 4C: 55.60 >55% EF 2C: 59.70 >55% EF BiP: 58.40 >55% Mitral Valve MV Pk E: 0.76 MV PK A: 0.58 MV Decel Time: 276.00 E/A: 1.30 E'Lateral: 9.79 E'Medial: 5.87 E/E' Med: 13.00 E/E' Lat: 7.80 PHT: 81.00 MVA PHT: 2.72 Decel Yuba: 2.76 Aortic Valve AoV Pk Murtaza: 1.09 AoV Mn Murtaza: 0.83 AoV VTI: 0.23 AoV Pk Grad: 5.00 Aov Mn Grad: 3.00 ELIANE Cont.VTI: 3.48 LVOT LVOT Pk Murtaza: 0.90 LVOT Mn Murtaza: 0.68 LVOT VTI: 0.18 LVOT Pk Grad: 3.00 LVOT Mn Grad: 2.00 LVOT Diam: 2.40 LVOT Area: 4.52 Diastolic Function MV Pk E: 0.76 MV Pk A: 0.58 E/A: 1.30 E'Medial: 5.87 E/E' Med: 13.00 E' Laterial: 9.79 E/E' Lat: 7.80 Right Ventricle TAPSE (mm): 23.30 TVS' Murtaza: 15.40 Tricuspid Valve RA Press: 8.00 Great Vessels Aorta Sinus of Valsalva: 3.80 2.0-3.5 cm Ao Asc: 3.80 2.1-3.4 cm Ao Arch: 2.90 Pulmonary Valve PV Pk Murtaza: 1.30 Peak PV Grad: 7.00 Updated in Other Vendor System with Status of Final Hakeem Villar MD electronically signed on 11/02/2024 3:26:23 PM with status of Final
== END ==
LOC: HO.CARD 08:01
PROVIDERS: Visit Provider Internal Medicine Gastroenterology
DX: R07.9 Chest pain, unspecified (principal)
CPT/HCPCS: 93017; 93306

== ENCOUNTER → 2024-11-02 08:03 | Outpatient (BNV) | payer OTHER, SELFPAY | PROVIDERS: Visit Provider Nurse Practitioner Family | DX: R07.9 Chest pain, unspecified (principal) | CPT/HCPCS: 93016; 93018; 93350 ==

== ENCOUNTER 2024-11-18 15:26 | Outpatient (AMB) | payer OTHER, SELFPAY ==
--- NOTE | 2024-11-18 15:33 | MHC.PC.OV ---
Vital Signs 11/18/24 15:36 Height 6 ft 1 in Weight 362 lb BMI 47.8 BP 142/82 H Blood Pressure Location Rt brachial Position Sitting Respiration 14 Pulse 76 Pulse Source Pulse Oximeter Pulse Oximetry (%) 98 Oxygen Delivery Method Room Air Intake Visit Reasons: F/U hypertension Intake Note: follow up hypertension [employer] Required: No Allergies amoxicillin Allergy (Verified 11/18/24 15:34) Unknown Penicillins [PCN] Allergy (Verified 11/18/24 15:34) Unknown Tobacco use date assessed: 05/06/24 Dental Screening Dental Screen Date: 05/06/24 HPI HPI Comments History of Present Illness Details This is a 34-year-old male with a past medical history of chest pain, asthma, morbid obesity, snoring and hypertension presenting for follow up. Hypertension-he is compliant with amlodipine 10 mg and hydrochlorothiazide 25 mg daily. His blood pressure remains suboptimally controlled. He admits that he has a lot of salt in his diet. He does not drink a lot of caffeine. He does not exercise. He is still struggling with his weight. He feels like he needs help with this. Insurance would not approve GLP 1. He eats a lot of the time for comfort in times of stress. We reviewed his lab results again today. Urinalysis showed trace proteinuria. Creatinine and GFR were normal. He has a family history of hypertension. He is a nonsmoker. He feels unmotivated. His PHQ-9 is mildly positive. Chest pain-he continues to have pain despite use of omeprazole 40 mg a day. He has had an EKG and echocardiogram and stress test which were reassuring. Patient saw Gastroenterology in October. Patient reports they want him to proceed with endoscopy. He was also referred to sleep Medicine. Pain is not exertional. Patient says it is not associated with shortness of breath or dizziness. ROS: Constitutional: No unexplained weight loss, fever, chills or night sweats. Gastrointestinal: No anorexia, nausea, vomiting or diarrhea. No abdominal pain or blood in stool. Neurologic: No headache, dizziness, syncope Psychiatric:No SI/HI. Physical exam: Constitutional: Alert, in no distress. Neck: Supple, Full range of motion. No lymphadenopathy. Respiratory: Clear to auscultation. Cardiovascular: S1 S2 regular. No murmurs Extremities: Warm and well perfused. No clubbing, cyanosis or edema. Psychiatric: Normal mood and affect [facility] Medical History (Updated 11/18/24 @ 16:25 by FERNANDO Moscoso) Mild depression Proteinuria Routine physical examination Migraines Asthma Surgical History No pertinent past surgical history Family History Mother COPD (chronic obstructive pulmonary disease) High blood pressure Diabetes Maternal Grandmother Breast cancer Maternal Grandfather Lung cancer Social History Household Members: Spouse and Children Housing: Apartment Are you a primary career coordinator to a significant other at home: No Do you presently have visiting nurse or other home services: No 75 years or older and lives alone: No Alcohol intake: never Patient Tobacco Use Status: Former Tobacco user e-Cigarette/Vaping Use: Never Used Substance Use Type: Marijuana service: No Current occupational status: employed 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 Cognitive needs: No Hearing needs: No Vision needs: Yes (glasses) Questionnaire PHQ-9 Over the last 2 weeks, how often have you been bothered by any of the following problems? 1. Little interest or pleasure in doing things: not at all 2. Feeling down, depressed, or hopeless: not at all 3. Trouble falling or staying asleep, or sleeping too much: several days 4. Feeling tired or having little energy: several days 5. Poor appetite or overeating: nearly every day 6. Feeling bad about yourself - or that you are a failure or have let yourself or your family down: not at all 7. Trouble concentrating on things, such as reading the newspaper or watching television: not at all 8. Moving or speaking so slowly that other people could have noticed. Or the opposite - being so fidgety or restless that you have been moving around a lot more than usual: not at all 9. Thoughts that you would be better off or of hurting yourself in some way: not at all Total score: 5 75440 - PHQ-9 Billing: Yes Source: Developed by Drs. Raúl L. Sandy Barboza Kurt Kroenke and colleagues, with an educational monalisa from [employer]. Thrive Questionnaire Date Thrive assessed: 11/18/24 I am a: Patient What is your living situation today?: I have a steady place to live Within the past 12 months, did the food you bought not last and you didn't have the money to get more?: Never true Within the past 12 months, did you worry whether your food would run out before you got money to buy more?: Never true Do you have trouble paying for medicines?: No Do you have trouble getting transportation to medical appointments?: No Do you have trouble paying your heating and electricity bill?: No Do you have trouble taking care of your child, family member or friend?: No Do you have trouble with day-to-day activities such as bathing, preparing meals, shopping, managing finances, etc.?: No Are you currently unemployed and looking for a job?: No Are you interested in more education?: No Please select the resources that you would like help with: None Currently or been in a relationship where the following occur: No concerns reported THRIVE Score: 0 AUDIT C Alcohol Use Questionnaire (AUDIT-C) 1. How often do you have a drink containing alcohol?: Never Total Score: 0 ZOILA-7 AMB Questionnaire ZOILA-7 Date ZOILA - 7 assessed: 11/18/24 Feeling nervous, anxious, or on edge: 0 = Not at all Not being able to stop or control worryin = Not at all Worrying too much about different things: 0 = Not at all Trouble relaxin = Not at all Being so restless that it is hard to sit still: 0 = Not at all Becoming easily annoyed or irritable: 0 = Not at all Feeling afraid as if something awful might happen: 0 = Not at all Total ZOILA-7 score (0-4 normal; 5-9 mild; 10-14 moderate; 15-21 severe): 0 Source: Developed by Drs. Raúl Barboza, Marquis Fajardo and colleagues, with an educational monalisa from [employer]. ZOILA-7 Assessment Billing ZOILA-7 Assessment Tool: ZOILA-7 Assessment 19632 Physical exam (Primary Care) Vital Signs: Last Vital Signs Pulse 76 11/18/24 15:36 Resp 14 11/18/24 15:36 BP 142/82 H 11/18/24 15:36 Pulse Ox 98 11/18/24 15:36 Oxygen Delivery Method Room Air 11/18/24 15:36 BMI result Body Mass Index 47.8 Tobacco/Smoking Status: Tobacco use Status Tobacco use date assessed 05/06/24 11/18/24 15:37 Patient Tobacco Use Status Former Tobacco user 11/18/24 15:37 e-Cigarette/Vaping Use Never Used 11/18/24 15:37 PHQ-9: PHQ-9 Score PHQ-9: Total score 5 11/18/24 16:08 Thrive Assessment: Date of Thrive Assessment Date Thrive assessed 11/18/24 11/18/24 15:37 Currently or been in a relationship where the following occur: No concerns reported Coding Level of Care Code Est Pt Level 4 (49173) Complex EM visit Add On G2211 Diagnoses Essential hypertension I10 Chest pain, unspecified type R07.9 Chest pain type: unspecified Mild depression F32.A Morbid obesity with BMI of 45.0-49.9, adult E66.01; Z68.42 Proteinuria R80.9 Additional Codes ZOILA-7 Assessment Billing - ZOILA-7 Assessment Tool: ZOILA-7 Assessment 53511 ([id number]) PHQ-9 - 41306 - PHQ-9 Billing: Yes ([id number]) Assessment & Plan Assessment & Plan (1) Essential hypertension: Code(s): I10 - Essential (primary) hypertension Category: Medical Plan: Recommend addition of Андрей or Arb for renal protection given hypertension and proteinuria. Patient declined medication at this time. He is agreeable to nephrology consult given uncontrolled hypertension and proteinuria. Recommended avoidance of caffeine. Encouraged weight loss. Avoid NSAID use. Follow low-sodium diet. (2) Chest pain: Code(s): R07.9 - Chest pain, unspecified Category: Medical Qualifiers: Chest pain type: unspecified Qualified Code(s): R07.9 - Chest pain, unspecified Plan: Cardiac workup reassuring. Pain is atypical. Patient will plan to proceed with upper endoscopy. Following with Gastroenterology. (3) Mild depression: Code(s): F32.A - Depression, unspecified Category: Medical Plan: This is contributing to obesity and lack of motivation to try to lose weight. Discussed options. Patient agreeable to trial of bupropion XL 150 mg q.a.m.. This is also used off-label for binge eating. Side effects and black box warning of reviewed with the patient. Patient will follow up in 4 weeks for a med check. (4) Morbid obesity with BMI of 45.0-49.9, adult: Code(s): E66.01 - Morbid (severe) obesity due to excess calories; Z68.42 - Body mass index [BMI] 45.0-49.9, adult Category: Medical Plan: Patient is not interested in bariatric surgery. See above notes regarding depression treatment. Lifestyle modifications reviewed with the patient. Provided with information for the right BMI Anitha. (5) Proteinuria: Code(s): R80.9 - Proteinuria, unspecified Category: Medical Plan Follow up in 1 month. Orders: Referrals Nephrology Referral I10 - Essential (primary) hypertension, R80.9 - Proteinuria, unspecified Medications: New bupropion HCl XL 150 mg PO QAM 30 tabs 1RF Patient Instructions: [employer] (handout given) Reminders: Watch all video tutorials, read all text messages and click on any features hidden messages to understand the anitha better. Accurately enter your weight in pounds and height in feet and inches. Accurately?select what time you wake up and sleep and be careful to select am/pm properly. Save your username and password somewhere. The anitha meets all HIPAA requirements. You must select shakes or bars or both and in the following?pages a specific brand. If you don't select a brand, the plan won't be accurate. You can use a regular?scale but buying the $23 [employer] Dryn[employer] scale from [employer] is recommended. For any issues you can hit technical support. If you take anti-diabetic and/or anti-hypertensive medications you must monitor blood sugars and blood pressure and alert the office if blood sugars are below 90 and blood pressures are below 110/60 so we can adjust medications if appropriate. The anitha will send you automatic?reminders to do that if you enter in the anitha that you have diabetes and/or hypertension and take medications for these conditions.
[2024-11-18 15:36] VITALS: BP 142/82; PULSE 76; RESP 14; O2SAT 98; BMI 47.8
== END 2024-11-18 16:19 | disposition home or self-care (01) ==
PROVIDERS: Visit Provider Physician Assistant Medical
DX: I10 Essential (primary) hypertension (principal); E66.01 Morbid (severe) obesity due to excess calories; Z68.42 Body mass index [BMI] 45.0-49.9, adult; R07.9 Chest pain, unspecified; F32.A Depression, unspecified; R80.9 Proteinuria, unspecified

== ENCOUNTER → 2024-11-18 15:26 | Outpatient (BNVA) | payer OTHER, SELFPAY | PROVIDERS: Visit Provider Physician Assistant Medical | DX: I10 Essential (primary) hypertension (principal); R07.9 Chest pain, unspecified; F32.A Depression, unspecified; E66.01 Morbid (severe) obesity due to excess calories; Z68.42 Body mass index [BMI] 45.0-49.9, adult; R80.9 Proteinuria, unspecified; Z79.899 Other long term (current) drug therapy; Z82.49 Family history of ischemic heart disease and other diseases of the circulatory system | CPT/HCPCS: 96127 ==

== ENCOUNTER 2024-12-02 12:43 | Day surgery (SDC) | payer OTHER, SELFPAY ==
--- NOTE | 2024-11-30 09:29 | HO.ANESPROP2 ---
HPI - Anesthesia Eval Consult details Narrative: 34yo M for Upper Endoscopy [facility] Active Problems Active Problems: All Active Problems Mild depression (Acute) Proteinuria (Acute) LUQ abdominal pain (Acute) Snoring (Acute) Routine physical examination (Acute) Morbid obesity with BMI of 45.0-49.9, adult (Acute) Asthma (Acute) Chest pain (Acute) Laboratory exam ordered as part of routine general medical examination (Acute) Hypertension (Acute) Past Medical History Medical History (Updated 11/18/24 @ 16:25 by FERNANDO Moscoso) Mild depression Proteinuria Routine physical examination Migraines Asthma Family History Family History Mother COPD (chronic obstructive pulmonary disease) High blood pressure Diabetes Maternal Grandmother Breast cancer Maternal Grandfather Lung cancer Surgical History Surgical History No pertinent past surgical history Social History Social History Household Members: Spouse and Children Housing: Apartment Are you a primary career discovery teacher to a significant other at home: No Do you presently have visiting nurse or other home services: No Alcohol intake: never Patient Tobacco Use Status: Former Tobacco user e-Cigarette/Vaping Use: Never Used Substance Use Type: Marijuana service: No Current occupational status: employed 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 Cognitive needs: No Hearing needs: No Vision needs: Yes (glasses) Meds Allergies Allergy/AdvReac Type Severity Reaction Status Date / Time amoxicillin Allergy Unknown Verified 11/18/24 15:34 Penicillins [PCN] Allergy Unknown Verified 11/18/24 15:34 Assessment and Plan Assessment Anesthesia Assessment: Chart Reviewed
[2024-12-02 12:57] VITALS: BMI 47.8
--- NOTE | 2024-12-02 13:03 | MHC.SHP ---
Pre-Procedural Eval Section A - 24 Hr Update-Section A only Date of Service: 12/02/24 Section B - Complete if H&P > 30 days Chief Complaint: gerd, Details of Present Illness: Migraines Asthma Surgical History No pertinent past surgical history Present Medications: see Short Stay Collaborative assessment Allergies: Allergies Allergy/AdvReac Type Severity Reaction Status Date / Time amoxicillin Allergy Unknown Verified 12/02/24 12:50 Penicillins [PCN] Allergy Unknown Verified 12/02/24 12:50 Review of Systems Review of Systems Comment: Ten point ROS negative Exam Exam Comment: Gen appear: No acute distress HEENT: no icterus Chest: No overt resp distress Abd: soft, nontender, nondistended Psych: Stable affect, answering questions appropriately Neuro: A/Ox3 noted to move all extremities spontaneously Ext: no peripheral edema Plan Diagnosis/Plan: Unchanged I have reviewed the history and physical and performed a pertinent physical examination on my patient. No changes have occurred unless specified. Time Spent With Patient Time: Total time managing care of this patient today ____ minutes.
[2024-12-02 13:15] VITALS: BP 159/100; PULSE 89; RESP 14; TEMP 36.5; O2SAT 95
[2024-12-02] MEDS: Lactated Ringers 1,000 ML 100 ML IVCONT (13:16)
--- NOTE | 2024-12-02 13:43 | P.OP_ITS ---
Operative Note Operative Note Date of Service: 12/02/24 Narrative: Procedure: Esophagogastroduodenoscopy Endoscopist: Marisa Robles MD Indication: Abd pain, GERD Anesthesia Provider: Dr Jewell Mujica Anesthesia Type: MAC ?? EGD Procedure:?? The procedure, indications, preparation and potential complications were reviewed with the patient, who indicated understanding and gave written informed consent to proceed. A physical exam was performed. The endoscope was introduced through the mouth, and advanced to the second part of duodenum. The mucosa was carefully examined on slow withdrawal of the endoscope. The patient tolerated the procedure well. There were no immediate complications.? ? EGD Findings:? * Esophagus:? Normal mucosa noted in the entire esophagus. The Z line was at 40 cm. Middle and lower esophagus forceps biopsies were obtained to rule out eosinophilic esophagitis. * Stomach:? Focal congestion and erythema noted in the antrum along the greater curvature. Retroflexion was performed in the cardia. Random cold forceps biopsies were taken to rule out H Pylori infection. * Duodenum:? Normal mucosa was noted in the whole of the examined duodenum. Cold forceps biopsies were taken from duodenal bulb and second portion of the duodenum to rule out celiac sprue. ? EGD Impressions:? * Normal esophagus (biopsy) * Gastritis (biopsy) * Normal duodenum (biopsy) ?? Recommendations:?? * Follow biopsy results. Our office will call or send a letter with results within 7-10 days. * Continue PPI therapy. * If H pylori +, patient will be prescribed eradication therapy followed by test of cure. * Avoid NSAIDs. Above has been reviewed with the patient.
[2024-12-02 13:50] VITALS: BP 121/80; PULSE 93; RESP 16; TEMP 36.3; O2SAT 95
--- NOTE | 2024-12-02 13:57 | P.CONAN_ITS ---
[facility] Active Problems Active Problems: All Active Problems Mild depression (Acute) Proteinuria (Acute) LUQ abdominal pain (Acute) Snoring (Acute) Routine physical examination (Acute) Morbid obesity with BMI of 45.0-49.9, adult (Acute) Asthma (Acute) Chest pain (Acute) Laboratory exam ordered as part of routine general medical examination (Acute) Hypertension (Acute) Past Medical History Medical History Mild depression Proteinuria Routine physical examination Migraines Asthma Functional capacity: independent ambulation Family History Family History Mother COPD (chronic obstructive pulmonary disease) High blood pressure Diabetes Maternal Grandmother Breast cancer Maternal Grandfather Lung cancer Family history of problems with anesthesia: No Surgical History Surgical History No pertinent past surgical history History of Problems with Anesthesia: No Social History Social History Household Members: Spouse and Children Housing: Apartment Are you a primary childcare center administrator to a significant other at home: No Do you presently have visiting nurse or other home services: No Alcohol intake: never Patient Tobacco Use Status: Former Tobacco user e-Cigarette/Vaping Use: Never Used Use of substances other than those prescribed or required for medical reasons: Yes Substance Use Type: Marijuana Have you been hit, kicked, punched, or otherwise hurt by someone within the past year? 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 Cognitive needs: No Hearing needs: No Vision needs: Yes (glasses) Meds Allergies Allergy/AdvReac Type Severity Reaction Status Date / Time amoxicillin Allergy Unknown Verified 12/02/24 12:50 Penicillins [PCN] Allergy Unknown Verified 12/02/24 12:50 Active Medications: Current Medications Albuterol Sulfate (Albuterol Sulfate (0.083%) 2.5 Mg/3 Ml Vial.Neb) 2.5 mg INHALE ONCE PRN PRN Reason: Shortness of Breath/Wheezing Lactated Ringer's (Lr) 1,000 mls @ 100 mls/hr IVCONT .Q10H GOLD Last Admin: 12/02/24 13:16 Dose: 100 mls/hr Exam Height,Weight and Vital Signs: Height 6 ft 1 in Weight 164.2 kg Last Vital Signs Temp 97.3 F 12/02/24 13:50 Pulse 93 12/02/24 13:50 Resp 16 12/02/24 13:50 BP 121/80 12/02/24 13:50 Pulse Ox 95 12/02/24 13:50 O2 Del Method Room Air 12/02/24 13:50 Airway Mallampati Class: III TM Dist: >3cm Neck ROM: Full Heart: RRR Lungs: CTA Assessment and Plan Assessment Anesthesia Assessment: Anesthesia Plan Discussed, Smoking Cess. Discussed and Ch art Reviewed Final Anesthetic Review Family History of Problems with Anesthesia: No History of Problems with Anesthesia: No NPO: Yes ASA Class: III Final Preanesthetic Review: Meds/Allgs Chart Reviewed, Consent Obtained/Reviewed and Anes Risks/Benef Reviewed Patient Risk: Intermediate Procedure Risk: Low Anesthetic Plan Anesthetic Plan: MAC: Disposition: Standard PACU
--- NOTE | 2024-12-02 13:59 | HO.POSTANES ---
Post Anesthesia Evaluation Post Anesthesia Evaluation Date of Service: 12/02/24 Vital Signs: Vital Signs Temp Pulse Resp BP Pulse Ox O2 Del Method 12/02/24 13:50 97.3 F 93 16 121/80 95 Room Air 12/02/24 13:15 97.7 F 89 14 159/100 H 95 Room Air Mental Status: Awake Pain Control: Satisfactory Nausea/Vomiting: None Hydration: Adequate Anesthesia-Related Issues: No Anes. Related Issues
[2024-12-02 14:05] VITALS: BP 129/84; PULSE 97; RESP 16; TEMP 36.3; O2SAT 96
== END 2024-12-02 14:20 | disposition home or self-care (01) ==
PROVIDERS: Visit Provider Internal Medicine
PROC: 0DJ08ZZ Inspection of Upper Intestinal Tract, Via Natural or Artificial Opening Endoscopic (ICD-10-PCS; CPT 43235; principal; 2024-12-02 14:30)
DX: K21.9 Gastro-esophageal reflux disease without esophagitis (principal); R07.9 Chest pain, unspecified; K29.50 Unspecified chronic gastritis without bleeding; R06.83 Snoring; J45.909 Unspecified asthma, uncomplicated; G43.909 Migraine, unspecified, not intractable, without status migrainosus; Z79.899 Other long term (current) drug therapy; Z88.0 Allergy status to penicillin; Z88.1 Allergy status to other antibiotic agents; Z87.891 Personal history of nicotine dependence
CPT/HCPCS: 43239; 88305; 88313; 88342

== ENCOUNTER → 2024-12-02 12:43 | Outpatient (BNV) | payer OTHER, SELFPAY | PROVIDERS: Visit Provider Internal Medicine | DX: K21.9 Gastro-esophageal reflux disease without esophagitis (principal); K29.70 Gastritis, unspecified, without bleeding | CPT/HCPCS: 43239 ==

== ENCOUNTER 2024-12-14 15:03 | Outpatient (AMB) | payer OTHER, SELFPAY ==
--- NOTE | 2024-12-14 15:02 | HO.NEPHOV_ITS ---
Vital Signs 12/14/24 15:03 12/14/24 15:15 Height 6 ft 1 in Weight 367 lb BMI 48.4 BP 142/96 H 140/90 H Blood Pressure Location Lt brachial Lt brachial Position Sitting Sitting Pulse 83 Pulse Source Pulse Oximeter Pulse Oximetry (%) 97 Oxygen Delivery Method Room Air Intake Visit Reasons: INP: Proteinuria/ CONF Naturopath Required: No Accompanied by: Spouse Allergies amoxicillin Allergy (Verified 12/14/24 15:06) Unknown Penicillins [PCN] Allergy (Verified 12/14/24 15:06) Unknown Medication List - Last Reconciled 12/14/24 by Dillan Soto MD amlodipine 10 mg PO DAILY bupropion HCl XL 150 mg PO QAM hydrochlorothiazide 25 mg PO DAILY 30 days miscellaneous medical supply (Blood Pressure Cuff) As directed omeprazole 40 mg PO DAILY 30 days HPI Comments Details: 34-year-old man with a history of significant obesity and hypertension referred for possible proteinuria. He has had weighed upper chest pain which has been worked up. Renal function has been rather stable. He has history of snoring at night. He was referred for sleep medicine back in October but he has not completed the evaluation [facility] Medical History Mild depression Proteinuria Routine physical examination Migraines Asthma Surgical History No pertinent past surgical history Family History Mother COPD (chronic obstructive pulmonary disease) High blood pressure Diabetes Maternal Grandmother Breast cancer Maternal Grandfather Lung cancer Social History Household Members: Spouse and Children Housing: Apartment Are you a primary pet care associate to a significant other at home: No Do you presently have visiting nurse or other home services: No 75 years or older and lives alone: No Alcohol intake: never Patient Tobacco Use Status: Former Tobacco user e-Cigarette/Vaping Use: Never Used Substance Use Type: Marijuana service: No Current occupational status: employed 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 Cognitive needs: No Hearing needs: No Vision needs: Yes (glasses) Physical Exam Vital Signs: Last Vital Signs Pulse 83 12/14/24 15:03 BP 140/90 H 12/14/24 15:15 Pulse Ox 97 12/14/24 15:03 Oxygen Delivery Method Room Air 12/14/24 15:03 BMI result Body Mass Index 48.4 Comfortable Neck supple no JVD. Lungs entry equal no rales. Heart S1-S2 heard no gallop or rub. Abdomen soft nontender. Neuro alert awake oriented. No asterixis. Extremities no edema. Results Reviewed Results Reviewed: Serum creatinine normal. No significant proteinuria by dipstick Nephrology Results: No Data to Display Assessment & Plan Assessment & Plan (1) Hypertension: Code(s): I10 - Essential (primary) hypertension Category: Medical (2) Proteinuria: Code(s): R80.9 - Proteinuria, unspecified Category: Medical Plan Young man with significant obesity and hypertension with possible proteinuria. Normal renal function. He probably has underlying obstructive sleep apnea. Recommendation Maintain blood pressure less than 130/80 Encouraged to stand low-sodium diet. He will benefit from weight loss. Encouraged him to increase physical activity 9 cut back on calorie intake. Recheck urine protein creatinine ratio along with urine microalbuminuria. He could have microalbuminuria/proteinuria most likely due to underlying obesity. If he has significant proteinuria I will start him on SARINA inhibitor for renal protection. I have referred him for sleep evaluation for SHERRY Orders: Orders Microalbumin, Random (w Creat) Today I10 - Essential (primary) hypertension, R80.9 - Proteinuria, unspecified Creatinine Urine Today I10 - Essential (primary) hypertension, R80.9 - Proteinuria, unspecified Total Protein Urine Random Today I10 - Essential (primary) hypertension, R80.9 - Proteinuria, unspecified Referrals Sleep Medicine Referral I10 - Essential (primary) hypertension Coding Level of Care Code New Pt Level 4 (34148) Diagnoses Hypertension I10 Proteinuria R80.9
[2024-12-14 15:03] VITALS: BP 142/96; PULSE 83; O2SAT 97; BMI 48.4
[2024-12-14 15:15] VITALS: BP 140/90
== END 2024-12-14 15:18 | disposition home or self-care (01) ==
PROVIDERS: PCP Physician Assistant Medical; Referring Provider Physician Assistant Medical; Visit Provider Internal Medicine Hypertension Specialist
DX: I10 Essential (primary) hypertension (principal); R80.9 Proteinuria, unspecified
CPT/HCPCS: 99204

== ENCOUNTER 2024-12-14 15:03 | Outpatient (REF) | payer OTHER, SELFPAY ==
[2024-12-14 17:01] LABS: Creatinine Urine 127.31 mg/dL
[2024-12-14 17:04] LABS: Creatinine Urine 129.75 mg/dL; Microalbum/Creatinine Ratio Ur 11.5 ug/mg cr (<30); Total Protein Urine Random 8 mg/dL (<12)
[2024-12-14 17:08] LABS: Total Protein 8.6 g/dL (6.5-8.0)
== END 2024-12-14 15:04 | disposition home or self-care (01) ==
LOC: HO.LAB 15:03
PROVIDERS: PCP Physician Assistant Medical; Referring Provider Physician Assistant Medical; Visit Provider Internal Medicine Hypertension Specialist
DX: R80.9 Proteinuria, unspecified (principal); I10 Essential (primary) hypertension; R77.8 Other specified abnormalities of plasma proteins
CPT/HCPCS: 36415; 82043; 82570; 84155; 84156

== ENCOUNTER 2025-01-03 14:18 | Outpatient (AMB) | payer OTHER, SELFPAY ==
[2025-01-03 14:19] VITALS: BP 142/98; PULSE 84; O2SAT 96; BMI 48.8
--- NOTE | 2025-01-03 14:19 | HO.NEPHOV_ITS ---
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 He has had weighed upper chest pain which has been worked up. Renal function has been rather stable. He has history of snoring at night. He was referred for sleep medicine back in October but he has not completed the evaluation [facility] Medical History Mild depression Proteinuria Routine physical examination Migraines Asthma Surgical History No pertinent past surgical history Family History Mother COPD (chronic obstructive pulmonary disease) High blood pressure Diabetes Maternal Grandmother Breast cancer Maternal Grandfather Lung cancer Social History Household Members: Spouse and Children Housing: Apartment Are you a primary director of career services to a significant other at home: No Do you presently have visiting nurse or other home services: No 75 years or older and lives alone: No Alcohol intake: never Patient Tobacco Use Status: Former Tobacco user e-Cigarette/Vaping Use: Never Used Substance Use Type: Marijuana service: No Current occupational status: employed 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 Cognitive needs: No Hearing needs: No Vision needs: Yes (glasses) Physical Exam Vital Signs: Last Vital Signs Pulse 84 01/03/25 14:19 BP 142/98 H 01/03/25 14:19 Pulse Ox 96 01/03/25 14:19 Oxygen Delivery Method Room Air 01/03/25 14:19 BMI result Body Mass Index 48.8 Results Reviewed Nephrology Results: Urine Creatinine 129.75 mg/dL 12/14/24 Assessment & Plan Assessment & Plan (1) Hypertension: Code(s): I10 - Essential (primary) hypertension Category: Medical (2) Proteinuria: Code(s): R80.9 - Proteinuria, unspecified Category: Medical Plan Young man with significant obesity and hypertension with possible proteinuria. Normal renal function. He probably has underlying obstructive sleep apnea. Urine protein creatinine ratio was unremarkable. No significant proteinuria. Next Recommendation Maintain blood pressure less than 130/80 Encouraged to stand low-sodium diet. He will benefit from weight loss. Encouraged him to increase physical activity ; cut back on calorie intake. No further workup is needed at this time Encouraged him to lose weight. Coding Level of Care Code Est Pt Level 3 (10803) Diagnoses Hypertension I10 Proteinuria R80.9
== END 2025-01-03 14:35 | disposition home or self-care (01) ==
LOC: HO.HKA 14:18
PROVIDERS: PCP Physician Assistant Medical; Visit Provider Internal Medicine Hypertension Specialist
DX: I10 Essential (primary) hypertension (principal); R80.9 Proteinuria, unspecified
CPT/HCPCS: 99213

== ENCOUNTER → 2025-01-07 15:28 | Outpatient (AMB) | payer OTHER, SELFPAY ==
--- NOTE | 2025-01-07 15:34 | MHC.OFFVIS ---
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 He goes to bed at 10pm, and gets up at 6:30am, with 3 bathroom breaks. He c/o being tired all the time and getting fragmented sleep. Snores loudly, gasps for air. Denies morning headaches. He c/o rest less legs, he has to move his legs all night long, burning electric shock like creepy sensation up the legs bilaterally. He denies tingling, numbness, cramps or spasms. He gets out of bed, sits up and stretches his legs to make it go away. 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 Memory is poor at baseline, he forgets tasks and has to write things, down, will forget appointments. Diet is poor, eating lots of processed and canned foods and carbohydrates. He has intermittent asthma and has difficulty with breathing and climbing stairs. His mood is okay, but varies. BMI is elevated, BP is elevated today 142/100. [facility] Medical History Mild depression Proteinuria Routine physical examination Migraines Asthma Surgical History No pertinent past surgical history Family History Mother COPD (chronic obstructive pulmonary disease) High blood pressure Diabetes Maternal Grandmother Breast cancer Maternal Grandfather Lung cancer Social History Household Members: Spouse and Children Housing: Apartment Are you a primary direct care provider to a significant other at home: No Do you presently have visiting nurse or other home services: No 75 years or older and lives alone: No Alcohol intake: never Patient Tobacco Use Status: Former Tobacco user e-Cigarette/Vaping Use: Never Used Substance Use Type: Marijuana service: No Current occupational status: employed 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 Cognitive needs: No Hearing needs: No Vision needs: Yes (glasses) Physical Exam Vital Signs: Last Vital Signs Pulse 90 01/07/25 15:42 BP 142/100 H 01/07/25 15:42 Pulse Ox 96 01/07/25 15:42 Oxygen Delivery Method Room Air 01/07/25 15:42 BMI result Body Mass Index 48.0 Const General: cooperative, comfortable and no acute distress Nutritional Appearance: obese (BMI is 48) morbidly obese Orientation/consciousness: patient oriented x3 HEENT Face and sinus: Yes normal facial exam and Yes face symmetric Teeth and gingiva: other ([place] score of 4) Eyes Pupils: Equal, round and reactive pupils present Neck Neck: Yes full ROM and Yes supple Resp Effort & Inspection: normal respiratory effort and able to speak in complete sentences Neuro General: patient oriented x3 and moves all extremities Cranial nerves: Yes CN's II-XII intact bilaterally, Yes Facial sensation intact/muscles of mastication intact, Yes Equal, round and reactive pupils present, Yes Normal accommodation reflex present, Yes Bilaterally intact EOM present, Yes Nystagmus not present, Yes Normal facial strength present, Yes Ability to bilaterally rotate head present and Yes Ability to bilaterally elevate shoulders present Gait exam (Neuro): Normal gait present Motor exam (neuro): 5/5 motor strength present throughout and no tremor noted Deep tendon reflexes (DTR's): Right triceps reflex intensity grade: 2+, Left triceps reflex intensity grade: 2+, Rt Biceps (C5, C6): 2+, Left biceps reflex intensity grade: 2+, Right brachioradialis reflex intensity grade: 2+, Left brachioradialis reflex intensity grade: 2+, Right patellar reflex intensity grade: 2+ and Left patellar reflex intensity grade: 2+ Psych Thought process: Normal thought process present Thought content: Normal thought content present Results Reviewed Results Reviewed: ER Note Chest Pain 03/2024 BP was 172/100 SOB Assessment & Plan Assessment & Plan (1) Fatigue due to sleep pattern disturbance: Code(s): R53.83 - Other fatigue; G47.9 - Sleep disorder, unspecified Category: Medical (2) Loud snoring: Code(s): R06.83 - Snoring Category: Medical Plan HST for Daytime excessive sleepiness. Snoring Loudly use nose strips, mouth guard, taping the mouth. Labs R/O anemia and nutritional deficiencies and RLS. CBC/CMP/B12/Vit D/ Folate MMA / Homocysteine BMI is elevated recommend nutritional counseling and meal prep. Patient Declined weight management today. BP is elevated today 142/100 monitor, and take Amlodipine and HCTZ as directed by your PCP. F/U in 3 months. Orders: Orders Vitamin B12 and Folate Today G47.9 - Sleep disorder, unspecified, R53.83 - Other fatigue Hemoglobin A1c Today G47.9 - Sleep disorder, unspecified, R53.83 - Other fatigue RT home sleep study Today G47.9 - Sleep disorder, unspecified, R53.83 - Other fatigue Complete Blood Count no Diff Today G47.9 - Sleep disorder, unspecified, R53.83 - Other fatigue Comprehensive Met. Panel Today G47.9 - Sleep disorder, unspecified, R53.83 - Other fatigue IRON PROFILE Today G47.9 - Sleep disorder, unspecified, R53.83 - Other fatigue Ferritin Today G47.9 - Sleep disorder, unspecified, R53.83 - Other fatigue Vitamin D 25-OH Total Today G47.9 - Sleep disorder, unspecified, R53.83 - Other fatigue Methylmalonic Acid Today G47.9 - Sleep disorder, unspecified, R53.83 - Other fatigue Homocysteine Today G47.9 - Sleep disorder, unspecified, R53.83 - Other fatigue Patient Instructions: Sleep Hygiene : establish a routine at night with a regular bedtime, no devices in bed, diffuse oils if unable to sleep, no fluids 2 hours prior to bed. No caffeinated drinks 4 hours prior to bed. #1 modifiable risk factor for Cardiovascular events is HTN, monitor bp and maintain good blood pressure control. Call the office for a 3 month f/u on Friday if we have not reached out to you first. Coding Level of Care Code New Pt Level 4 (68067) Diagnoses Fatigue due to sleep pattern disturbance R53.83; G47.9 Loud snoring R06.83 Sleep Questionnaire Difficulty falling asleep: No Difficulty staying asleep?: Yes Number of arousals: 4 Snoring: Yes Witnessed apneas: Yes Gasping arousals: Yes Nocturia: Yes GERD: Yes Vivid dreams: No Acting out dreams: No Abnormal behavior in sleep: No Abnormal movements in sleep: No Morning headaches: No Excessive daytime sleepiness: Yes Daytime naps: No Restless legs: Yes Hallucinations: No Sleep paralysis: No Drop attacks: No Sleep Study: No CPAP: No
[2025-01-07 15:42] VITALS: BP 142/100; PULSE 90; O2SAT 96; BMI 48.0
== END ==
PROVIDERS: PCP Physician Assistant Medical; Visit Provider Physician Assistant Medical
DX: R53.83 Other fatigue (principal); G47.9 Sleep disorder, unspecified; R06.83 Snoring
CPT/HCPCS: 99204

== ENCOUNTER → 2025-03-14 15:50 | Outpatient (REF) | payer OTHER, SELFPAY | LOC: HO.SL 15:50 | PROVIDERS: PCP Physician Assistant Medical; Visit Provider Physician Assistant Medical | DX: G47.33 Obstructive sleep apnea (adult) (pediatric) (principal); R53.83 Other fatigue | CPT/HCPCS: 95806 ==

== ENCOUNTER → 2025-03-14 16:02 | Outpatient (BNV) | payer OTHER, SELFPAY | PROVIDERS: PCP Physician Assistant Medical; Visit Provider Psychiatry & Neurology Neurology | DX: G47.33 Obstructive sleep apnea (adult) (pediatric) (principal) | CPT/HCPCS: 95806 ==